=== PATIENT | female | born 1970 | race Caucasian/White ===

== ENCOUNTER → 2017-01-28 | Outpatient (CLI) | payer BC ==
[~2017-01-28] MED LIST: ATOR-26 PO; LSN/10125 PO; PSYL0.524 PO; SERT25TA PO; vitamin D PO
--- NOTE | 2017-01-28 15:49 | DIAGNOSTIC IMAGING REPORT ---
LEFT AXILLARY ULTRASOUND CLINICAL HISTORY: Left upper arm/axillary mass COMPARISON STUDY: None FINDINGS: No pathologic masses are visualized ultrasonographically. If a clinically suspicious mass is repalpated, an MRI should be considered in follow-up. IMPRESSION: Ultrasound fails to visualize the reported palpable mass. If a clinically suspicious mass is repalpated, then additional imaging such as MRI should be considered. Electronically signed by: Ronald Bernard M.D. 01/28/2017 3:47 PM Dictated Date/Time: 01/28/2017 3:46 PM
== END | disposition home or self-care (01) ==
LOC: C.ULTR 15:11
PROVIDERS: ATTEND Nurse Practitioner Family
DX: R22.30 Localized swelling, mass and lump, unspecified upper limb (principal)

== ENCOUNTER → 2017-01-30 | Outpatient (CLI) | payer BC ==
[~2017-01-30] MED LIST changes: +GADAVIST IV PRN
--- NOTE | 2017-01-30 12:49 | DIAGNOSTIC IMAGING REPORT ---
CHEST COMBO CLINICAL HISTORY: 46 years-old Female presenting with LOCALIZED SWELLING MASS AND LUMP LEFT AXILLA. TECHNIQUE: Multisequence, multiplanar MR imaging of the left chest was performed before and after the administration of intravenous contrast. IV contrast: 10 mL of Gadavist. COMPARISON: Ultrasound from 01/28/2017. FINDINGS: Localizer images: Unremarkable. A marker is noted along the medial posterior aspect of the left upper arm. No abnormalities subjacent to this region. No suspicious enhancing mass. No axillary lymphadenopathy No pulmonary nodule evident on MR. The heart may be enlarged. No focal fluid collection. Visualized osseous structures demonstrate normal bone marrow signal intensity. Normal muscle bulk. Glenohumeral joint congruent. IMPRESSION: 1. No significant abnormality subjacent to the marked region along the medial left upper arm. Electronically signed by: Freedom Leon M.D. 01/30/2017 12:48 PM Dictated Date/Time: 01/30/2017 12:41 PM
== END | disposition home or self-care (01) ==
LOC: C.MRI 10:33
PROVIDERS: ATTEND Nurse Practitioner Family
DX: R22.30 Localized swelling, mass and lump, unspecified upper limb (principal); R53.83 Other fatigue

== ENCOUNTER → 2017-05-31 | Outpatient (CLI) | payer BC ==
[~2017-05-31] MED LIST changes: -GADAVIST IV PRN
--- NOTE | 2017-05-31 15:38 | MAMMOGRAPHY REPORT ---
BILATERAL DIGITAL SCREENING MAMMOGRAM TOMOSYNTHESIS WITH CAD: 05/31/2017 CLINICAL HISTORY: Routine screening. Patient has no complaints. TECHNIQUE: Breast tomosynthesis in addition to standard 2D mammography was performed. Current study was also evaluated with a Computer Aided Detection (CAD) system. COMPARISON: Comparison is made to exams dated: 05/02/2016 mammogram, 04/14/2015 mammogram, 10/09/2013 mammogram, 08/18/2012 mammogram, 08/14/2012 mammogram, and 10/24/2010 mammogram - [facility] enter. BREAST COMPOSITION: There are scattered areas of fibroglandular density in both breasts. FINDINGS: No suspicious masses, calcifications, or areas of architectural distortion are noted in ei ther breast. There has been no significant interval change compared to prior exams. Small circumscri bed benign-appearing masses are again noted bilaterally, which likely represent cysts. IMPRESSION: ACR BI-RADS CATEGORY 2: BENIGN There is no mammographic evidence of malignancy. A 1 year screening mammogram is recommended. The pa tient will receive written notification of the results. Approximately 10% of breast cancers are not detected with mammography. A negative mammographic report should not delay biopsy if a clinically suggestive mass is present. Ivory Gu M.D. ah/:05/31/2017 15:05:03 Industrial Maintenance Mechanic: Jennifer GUZMAN)(Laurent)([place]), [facility] letter sent: Normal 1/2 BI-RADS Code: ACR BI-RADS Category 2: Benign
== END | disposition home or self-care (01) ==
LOC: C.MAMM 14:40
PROVIDERS: ATTEND Nurse Practitioner Family
DX: Z12.31 Encounter for screening mammogram for malignant neoplasm of breast (principal)

== ENCOUNTER 2017-08-23 13:57 | Emergency (ER) | payer BC ==
[~2017-08-23] VITALS: Ht 167.6 cm; Wt 108.1 kg
[2017-08-23 14:02] VITALS: TEMP 36.7; Ht 167.6 cm; Wt 108.1 kg
[2017-08-23] MEDS ORDERED: FAMOTIDINE 20MG/5ML IV PUSH IV STA (16:26)
[2017-08-23] MEDS ORDERED: SODIUM CHLORIDE 0.9% 1000ML 1,000 ML IV STA (16:26)
[2017-08-23] MEDS ORDERED: OPTIRAY 320 IV PRN (16:45)
[2017-08-23 16:59] VITALS: O2SAT 93
[2017-08-23] MEDS ORDERED: SNG10 PO (17:04)
[2017-08-23] MEDS ORDERED: ZLF/50 PO (17:04)
[2017-08-23] MEDS ORDERED: CHOL2000 PO (17:06)
[2017-08-23] MEDS ORDERED: MAGN250T8 PO (17:09)
[2017-08-23] MEDS ORDERED: FIBE1CHW8 PO (17:09)
[2017-08-23 17:12] LABS: BASO % 0.5 %; BASO ABS # 0.04 K/uL (0-0.2); EOS % 0.8 %; EOS ABS # 0.06 K/uL (0-0.5); HEMATOCRIT 41.9 % (37-47); IG# 0.03 K/uL (0.00-0.02); LYMPH % 31.2 %; LYMPH ABS # 2.48 K/uL (1.2-3.4); MEAN CELL VOLUME 91.9 fL (80-100); MEAN CORPUSCULAR HEMOGLOBIN 30.7 pg (25-34); MEAN CORPUSCULAR HGB CONC 33.4 g/dl (32-36); MEAN PLATELET VOLUME 11.3 fL (7.4-10.4); MONO % 7.5 %; NEUT % 59.6 %; NEUT ABS # 4.75 K/uL (1.4-6.5); PLATELET COUNT 213 K/uL (130-400); RED CELL DISTRIBUTION WIDTH CV 13.8 % (11.5-14.5); WHITE BLOOD COUNT 7.96 K/uL (4.8-10.8)
--- NOTE | 2017-08-23 17:12 | DIAGNOSTIC IMAGING REPORT ---
CHEST ONE VIEW PORTABLE CLINICAL HISTORY: 47 years-old Female presenting with CHEST PAIN. TECHNIQUE: Portable upright AP view of the chest was obtained. COMPARISON: 09/15/2014. FINDINGS: Cardiomediastinal silhouette normal. Lungs and pleural spaces clear. Osseous structures normal. Upper abdomen normal. IMPRESSION: 1. No acute cardiopulmonary disease. Electronically signed by: Freedom Leon M.D. 08/23/2017 5:10 PM Dictated Date/Time: 08/23/2017 5:10 PM
--- NOTE | 2017-08-23 17:27 | EMERGENCY ROOM VISIT NOTE ---
History Report prepared by Son: Shavonne Lane Under the Supervision of: Dr. Nikhil Gardner M.D. First contact with patient: 16:23 Chief Complaint: CARDIAC ASSESSMENT Stated Complaint: LEFT SIDED NUMBESS, SICK IN STOMACH Nursing Triage Summary: pt reports strange feeling in left chest, down left arm for the past several days. Comes and goes. +nausea hx of HTN. History of Present Illness The patient is a 47 year old female who presents to the Emergency Room with complaints of persistent left sided chest pain beginning three days ago. She notes she also has numbness in her left arm and left leg beginning two days ago that is waxing and waning. She notes she has been having hand and feet aches. The patient also reports she has been light headed and has left sided face numbness beginning at the same time the chest pain began. She denies a cough, neck pain, nausea, and diarrhea but notes she has bloating and burning in her abdomen. The patient reports this is her first time feeling like this. She denies any recent long flights or sitting for an extended period of time. Source of History: patient Onset: three days ago Position: chest (left) Quality: other (persistent ) Timing: waxes/wanes Associated Symptoms: + SOB, + numbness (left arm, left leg, left side of face), No cough, No neck pain, No nausea, No diarrhea Note: Positive hand and feet aches Review of Systems See HPI for pertinent positives and negatives. A total of ten systems were reviewed and were otherwise negative. Past Medical & Surgical Medical Problems: (1) Hypertension Surgical Problems: (1) History of hysterectomy (2) Hx of tonsillectomy Family History Cancer FHx: heart disease Gallbladder disease Heart disease Lung disease Seizures Social History Smoking Status: Former Smoker Housing Status: lives with family Current/Historical Medications Scheduled Atorvastatin (Lipitor), 80 MG PO HS Cholecalciferol (Vitamin D3), 2,000 INTER.UNIT PO DAILY Famotidine (Pepcid), 20 MG PO BID Fiber (Fiber Adult Gummies 2 gm), 1 TAB PO BID Hctz/Lisinopril (Lisinopril/Hctz 10/12.5 Mg), 1 TAB PO QAM Magnesium Oxide (Mg Supplement (Magnesium), 1 TAB PO DAILY Montelukast Sod (Montelukast Sodium), 10 MG PO DAILY Sertraline HCl (Sertraline HCl), 75 MG PO HS Allergies Coded Allergies: NSAIDs (Verified Allergy, Unknown, STOMACH ULCER, 05/11/16) Penicillins (Verified Allergy, Unknown, FACIAL SWELLING, 05/11/16) Simvastatin (Verified Allergy, Unknown, muscle pain, 05/11/16) Physical Exam Vital Signs Date Time Temp Pulse Resp B/P (MAP) Pulse Ox O2 Delivery O2 Flow Rate FiO2 08/23/17 19:12 66 139/84 99 08/23/17 18:09 52 18 138/89 100 Room Air 08/23/17 16:59 93 Room Air 08/23/17 16:57 58 08/23/17 14:05 98 Room Air 08/23/17 14:02 36.7 59 18 159/107 97 Room Air Physical Exam GENERAL: Awake, alert, anxious-appearing, in no distress HENT: Normocephalic, atraumatic. Oropharynx unremarkable. Dry mucous membranes. EYES: Normal conjunctiva. Sclera non-icteric. NECK: Supple. No nuchal rigidity. FROM. No JVD. RESPIRATORY: Clear to auscultation. CARDIAC: Regular rate, normal rhythm. Extremities warm and well perfused. Pulses equal. ABDOMEN: Soft, non-distended. Mild epigastric discomfort, no discrete tenderness , no peritoneal signs No rebound or guarding. No masses. RECTAL: Deferred. MUSCULOSKELETAL: Chest examination reveals no tenderness. The back is symmetrical on inspection without obvious abnormality. There is no CVA tenderness to palpation. No joint edema. LOWER EXTREMITIES: Calves are equal size bilaterally and non-tender. No edema. No discoloration. NEURO: Normal sensorium. No sensory or motor deficits noted. Normal cerebellar function with [id number], alternating palms, [id number] SKIN: No rash or jaundice noted. Medical Decision & Procedures ER Provider Diagnostic Interpretation: Radiology results as stated below per my review and radiologist interpretation: HEAD WITHOUT CONTRAST (CT) CT DOSE: 1062.25 mGy.cm HISTORY: Pain. Neuropathy. left sided numbness TECHNIQUE: Multiaxial CT images of the head were performed without the use of intravenous contrast. A dose lowering technique was utilized adhering to the principles of ALARA. Comparison: None. Findings: The paranasal sinuses and mastoid air cells are clear. The calvarium and skull base are intact. The ventricles and sulci are within normal limits. There is no mass, hematoma, midline shift, or acute infarct. Impression: No acute intracranial abnormality. The above report was generated using voice recognition software. It may contain grammatical, syntax or spelling errors. Electronically signed by: Tristian Figueroa M.D. 08/23/2017 6:33 PM Dictated Date/Time: 08/23/2017 6:31 PM CHEST ONE VIEW PORTABLE CLINICAL HISTORY: 47 years-old Female presenting with CHEST PAIN. TECHNIQUE: Portable upright AP view of the chest was obtained. COMPARISON: 09/15/2014. FINDINGS: Cardiomediastinal silhouette normal. Lungs and pleural spaces clear. Osseous structures normal. Upper abdomen normal. IMPRESSION: 1. No acute cardiopulmonary disease. Electronically signed by: Freedom Leon M.D. 08/23/2017 5:10 PM Dictated Date/Time: 08/23/2017 5:10 PM HEAD ANGIO WITH CONTRAST, NECK ANGIO WITH CONTRAST CLINICAL HISTORY: 47 years-old Female presenting with left-sided numbness. TECHNIQUE: Multidetector CT angiography of the head and neck was performed after the administration of intravenous contrast. 3-D volumetric and/or maximum intensity projection (MIP) images were subsequently reconstructed for review. IV contrast: 93 mL of Optiray 320. A dose lowering technique was used consistent with the principles of ALARA (as low as reasonably achievable). Stenosis measurements were based on NASCET-like criteria. COMPARISON: None. CT DOSE (mGy.cm): The estimated cumulative dose is 1062.25 inclusive of the noncontrast CT head. FINDINGS: Chemical Process Equipment Operator topogram: Unremarkable. CTA HEAD: Intracranial portions of the internal carotid arteries are patent. Bilateral anterior and middle cerebral arteries patent. Anterior communicating artery not well visualized, possibly hypoplastic or aplastic. Posterior circulation demonstrates left dominant vertebral artery both contribute to the patent basilar artery. Bilateral posterior inferior cerebellar, superior cerebellar, and posterior cerebral arteries patent. Posterior communicating arteries hypoplastic or aplastic. Evaluation slightly degraded by timing of the contrast with opacification of the cortical and deep cerebral veins. No evidence of focal vessel occlusion, stenosis, or aneurysm of the intracranial arteries. Layering fluid in the bilateral maxillary sinuses. CTA NECK: Three-vessel aortic arch with patent origins of the cervical vessels. Bilateral common carotid arteries patent. Trace atherosclerosis noted at the right carotid bulb. Internal carotid arteries patent at their origins and along their courses bilaterally. Vertebral arteries patent at their origins and along the courses. Left dominant vertebral artery. No evidence of dissection, focal vessel occlusion, or significant stenosis of the cervical arteries. Soft tissues of the neck remarkable for multiple thyroid nodules, the largest measuring 8 mm. No lymphadenopathy. Lung apices clear. Minimal degenerative change of the cervical spine. IMPRESSION: 1. No evidence of focal vessel occlusion, stenosis, or aneurysm of the intracranial arteries. 2. No evidence of dissection, focal vessel occlusion, or significant stenosis of the cervical arteries. 3. Layering fluid in the bilateral maxillary sinuses, which is suggestive of acute sinusitis. Electronically signed by: Freedom Leon M.D. 08/23/2017 6:41 PM Dictated Date/Time: 08/23/2017 6:32 PM HEAD ANGIO WITH CONTRAST, NECK ANGIO WITH CONTRAST CLINICAL HISTORY: 47 years-old Female presenting with left-sided numbness. TECHNIQUE: Multidetector CT angiography of the head and neck was performed after the administration of intravenous contrast. 3-D volumetric and/or maximum intensity projection (MIP) images were subsequently reconstructed for review. IV contrast: 93 mL of Optiray 320. A dose lowering technique was used consistent with the principles of ALARA (as low as reasonably achievable). Stenosis measurements were based on NASCET-like criteria. COMPARISON: None. CT DOSE (mGy.cm): The estimated cumulative dose is 1062.25 inclusive of the noncontrast CT head. FINDINGS: Chemical Process Equipment Operator topogram: Unremarkable. CTA HEAD: Intracranial portions of the internal carotid arteries are patent. Bilateral anterior and middle cerebral arteries patent. Anterior communicating artery not well visualized, possibly hypoplastic or aplastic. Posterior circulation demonstrates left dominant vertebral artery both contribute to the patent basilar artery. Bilateral posterior inferior cerebellar, superior cerebellar, and posterior cerebral arteries patent. Posterior communicating arteries hypoplastic or aplastic. Evaluation slightly degraded by timing of the contrast with opacification of the cortical and deep cerebral veins. No evidence of focal vessel occlusion, stenosis, or aneurysm of the intracranial arteries. Layering fluid in the bilateral maxillary sinuses. CTA NECK: Three-vessel aortic arch with patent origins of the cervical vessels. Bilateral common carotid arteries patent. Trace atherosclerosis noted at the right carotid bulb. Internal carotid arteries patent at their origins and along their courses bilaterally. Vertebral arteries patent at their origins and along the courses. Left dominant vertebral artery. No evidence of dissection, focal vessel occlusion, or significant stenosis of the cervical arteries. Soft tissues of the neck remarkable for multiple thyroid nodules, the largest measuring 8 mm. No lymphadenopathy. Lung apices clear. Minimal degenerative change of the cervical spine. IMPRESSION: 1. No evidence of focal vessel occlusion, stenosis, or aneurysm of the intracranial arteries. 2. No evidence of dissection, focal vessel occlusion, or significant stenosis of the cervical arteries. 3. Layering fluid in the bilateral maxillary sinuses, which is suggestive of acute sinusitis. Electronically signed by: Freedom Leon M.D. 08/23/2017 6:41 PM Dictated Date/Time: 08/23/2017 6:32 PM Laboratory Results 08/23/17 16:52 Red Blood Count 4.56, Mean Corpuscular Volume 91.9, Mean Corpuscular Hemoglobin 30.7, Mean Corpuscular Hemoglobin Concent 33.4, Mean Platelet Volume 11.3, Neutrophils (%) (Auto) 59.6, Lymphocytes (%) (Auto) 31.2, Monocytes (%) (Auto) 7.5, Eosinophils (%) (Auto) 0.8, Basophils (%) (Auto) 0.5, Neutrophils # (Auto) 4.75, Lymphocytes # (Auto) 2.48, Monocytes # (Auto) 0.60, Eosinophils # (Auto) 0.06, Basophils # (Auto) 0.04 08/23/17 16:52 Test 08/23/17 16:24 08/23/17 16:52 Urine Color YELLOW Urine Appearance CLEAR (CLEAR) Urine pH 5.0 (4.5-7.5) Urine Specific [place] 1.017 (1.000-1.030) Urine Protein NEG (NEG) Urine Glucose (UA) NEG (NEG) Urine Ketones NEG (NEG) Urine Occult Blood 1+ (NEG) Urine Nitrite NEG (NEG) Urine Bilirubin NEG (NEG) Urine Urobilinogen NEG (NEG) Urine Leukocyte Esterase NEG (NEG) Urine WBC (Auto) 1-5 /hpf (0-5) Urine RBC (Auto) 0-4 /hpf (0-4) Urine Hyaline Casts (Auto) 1-5 /lpf (0-5) Urine Epithelial Cells (Auto) 10-20 /lpf (0-5) Urine Bacteria (Auto) NEG (NEG) White Blood Count 7.96 K/uL (4.8-10.8) Red Blood Count 4.56 M/uL (4.2-5.4) Hemoglobin 14.0 g/dL (12.0-16.0) Hematocrit 41.9 % (37-47) Mean Corpuscular Volume 91.9 fL (80-100) Mean Corpuscular Hemoglobin 30.7 pg (25-34) Mean Corpuscular Hemoglobin Concent 33.4 g/dl (32-36) Platelet Count 213 K/uL (130-400) Mean Platelet Volume 11.3 fL (7.4-10.4) Neutrophils (%) (Auto) 59.6 % Lymphocytes (%) (Auto) 31.2 % Monocytes (%) (Auto) 7.5 % Eosinophils (%) (Auto) 0.8 % Basophils (%) (Auto) 0.5 % Neutrophils # (Auto) 4.75 K/uL (1.4-6.5) Lymphocytes # (Auto) 2.48 K/uL (1.2-3.4) Monocytes # (Auto) 0.60 K/uL (0.11-0.59) Eosinophils # (Auto) 0.06 K/uL (0-0.5) Basophils # (Auto) 0.04 K/uL (0-0.2) RDW Standard Deviation 46.0 fL (36.4-46.3) RDW Coefficient of Variation 13.8 % (11.5-14.5) Immature Granulocyte % (Auto) 0.4 % Immature Granulocyte # (Auto) 0.03 K/uL (0.00-0.02) Anion Gap 9.0 mmol/L (3-11) Est Creatinine Clear Calc Drug Dose 115.7 ml/min Estimated GFR () 111.0 Estimated GFR (Non- 95.8 BUN/Creatinine Ratio 23.4 (10-20) Calcium Level 9.8 mg/dl (8.5-10.1) Total Bilirubin 0.5 mg/dl (0.2-1) Direct Bilirubin 0.1 mg/dl (0-0.2) Aspartate Amino Transf (AST/SGOT) 27 U/L (15-37) Alanine Aminotransferase (ALT/SGPT) 47 U/L (12-78) Alkaline Phosphatase 116 U/L (45-117) Troponin I < 0.015 ng/ml (0-0.045) Total Protein 7.6 gm/dl (6.4-8.2) Albumin 4.1 gm/dl (3.4-5.0) Lipase 166 U/L (73-393) Monoscreen NEG (NEG) Influenza Type A Antigen Neg for Influ A (NEG) Influenza Type B Antigen Neg for Influ B (NEG) Laboratory results reviewed by me Medications Administered Medications (Trade) Dose Ordered Sig/Delroy Route Start Time Stop Time Status Last Admin Dose Admin Sodium Chloride 1,000 ml @ 999 mls/hr Q1H1M STAT IV 08/23/17 16:26 08/23/17 17:26 DC 08/23/17 17:06 999 MLS/HR Famotidine (Pepcid 20mg Iv Push) 20 mg NOW STAT IV 08/23/17 16:26 08/23/17 16:36 DC 08/23/17 17:06 20 MG ECG Indication: chest pain Rate (beats per minute): 58 Rhythm: sinus bradycardia Findings: no acute ischemic change, other (normal axis) Change: Patient's electrocardiogram interpreted by me. ED Course 1625: The patient was evaluated in room A11. A complete history and physical exam was performed. 5: I reevaluated the patient. Discussed results and discharge instructions: She verbalized understanding and agreement. The patient is ready for discharge. I checked on the patient at this time. She feels a little better and wants to go home. Medical Decision I reviewed the patient's past medical history, medications, and the nursing notes as described above. Differential diagnosis: Etiologies such as cardiac ischemia, aortic dissection, pulmonary embolism, pneumonia, pneumothorax, musculoskeletal, infections, pericarditis, myocarditis , esophageal rupture, gastrointestinal, neurologic as well as others were entertained. The patient is a 47 y/o woman who presents to the emergency department with multiple complaints including CP, SOB, lightheadedness, left arm, leg, and face numbness with leg numbness resolving, epigastric pain and nausea per HPI. On arrival the patient is anxious appearing but in NAD, AFVSS. On exam has mild epigastric discomfort but no discrete ttp. Neuro intact including normal cerebellar function with [id number], alternating palms, zfuc-[id number]. EKG unremarkable. Troponin negative in the setting of constant sx. CTA head/neck unremarkable. Patient feeling improved after GI cocktail suggesting possible reflux/gastritis (in the setting of CT findings c/w sinuitis) component to patient's sx, however difficulty to unify all of the patients complaints under a single diagnosis. However, given reassuring w/u and exam unlikely to have emergent process at this time. Findings and plan for follow-up reviewed with patient. Patient agreeable and d/c'd per discharge instructions. Medication Reconcilliation Current Medication List: was personally reviewed by me Blood Pressure Screening Patient's blood pressure: Elevated blood pressure Blood pressure disposition: Elevated BP felt to be situational Impression Primary Impression: Substernal chest pain Additional Impression: Gastritis Scribe Attestation The scribe's documentation has been prepared under my direction and personally reviewed by me in its entirety. I confirm that the note above accurately reflects all work, treatment, procedures, and medical decision making performed by me. Departure Information Dispostion Home / Self-Care Prescriptions Famotidine (PEPCID) 20 Mg Tab 20 MG PO BID for 14 Days, #28 TAB Prov: Nikhil Gardner M.D. 08/23/17 Referrals No Doctor, Assigned (PCP) Forms IMPORTANT VISIT INFORMATION Patient Instructions ED Chest Pain Atypical Unkn Cause, ED Gastritis, My [facility] Additional Instructions Please follow up with your primary care physician in the next 1-3 days for re- evaluation. The exact cause of your symptoms unclear at this time but may be related to reflux or a gastritis. Additionally your CAT scan suggest some evidence of sinusitis. Otherwise, your exam, EKG, chest xray, CT scan with contrast of your head and neck, and lab results did not show signs of an emergent condition at this time. Acetaminophen for pain and fevers as needed. Pepcid for acid reduction. Mucinex and nasal saline spray to help loosen mucus. Drink plenty of fluids to ensure hydration. Return to the emergency department for worsening symptoms as described in the accompanying instructions. Problem Qualifiers
[2017-08-23 17:30] LABS: ALBUMIN 4.1 gm/dl (3.4-5.0); ALT/SGPT 47 U/L (12-78); AST/SGOT 27 U/L (15-37); BLOOD UREA NITROGEN 17 mg/dl (7-18); CALCIUM 9.8 mg/dl (8.5-10.1); CARBON DIOXIDE 25 mmol/L (21-32); CREATININE 0.74 mg/dl (0.60-1.20); GLUCOSE 88 mg/dl (70-99); LIPASE 166 U/L (73-393); POTASSIUM 3.6 mmol/L (3.5-5.1); SODIUM 136 mmol/L (136-145)
[2017-08-23 17:35] LABS: ALKALINE PHOSPHATASE 116 U/L (45-117); TOTAL PROTEIN 7.6 gm/dl (6.4-8.2)
[2017-08-23 17:54] LABS: INFLUENZA B ANTIGEN Neg for Influ B (NEG)
--- NOTE | 2017-08-23 18:34 | DIAGNOSTIC IMAGING REPORT ---
HEAD WITHOUT CONTRAST (CT) CT DOSE: 1062.25 mGy.cm HISTORY: Pain. Neuropathy. left sided numbness TECHNIQUE: Multiaxial CT images of the head were performed without the use of intravenous contrast. A dose lowering technique was utilized adhering to the principles of ALARA. Comparison: None. Findings: The paranasal sinuses and mastoid air cells are clear. The calvarium and skull base are intact. The ventricles and sulci are within normal limits. There is no mass, hematoma, midline shift, or acute infarct. Impression: No acute intracranial abnormality. The above report was generated using voice recognition software. It may contain grammatical, syntax or spelling errors. Electronically signed by: Tristian Figueroa M.D. 08/23/2017 6:33 PM Dictated Date/Time: 08/23/2017 6:31 PM
--- NOTE | 2017-08-23 18:42 | DIAGNOSTIC IMAGING REPORT ---
HEAD ANGIO WITH CONTRAST, NECK ANGIO WITH CONTRAST CLINICAL HISTORY: 47 years-old Female presenting with left-sided numbness. TECHNIQUE: Multidetector CT angiography of the head and neck was performed after the administration of intravenous contrast. 3-D volumetric and/or maximum intensity projection (MIP) images were subsequently reconstructed for review. IV contrast: 93 mL of Optiray 320. A dose lowering technique was used consistent with the principles of ALARA (as low as reasonably achievable). Stenosis measurements were based on NASCET-like criteria. COMPARISON: None. CT DOSE (mGy.cm): The estimated cumulative dose is 1062.25 inclusive of the noncontrast CT head. FINDINGS: Multiple Spindle Router Operator topogram: Unremarkable. CTA HEAD: Intracranial portions of the internal carotid arteries are patent. Bilateral anterior and middle cerebral arteries patent. Anterior communicating artery not well visualized, possibly hypoplastic or aplastic. Posterior circulation demonstrates left dominant vertebral artery both contribute to the patent basilar artery. Bilateral posterior inferior cerebellar, superior cerebellar, and posterior cerebral arteries patent. Posterior communicating arteries hypoplastic or aplastic. Evaluation slightly degraded by timing of the contrast with opacification of the cortical and deep cerebral veins. No evidence of focal vessel occlusion, stenosis, or aneurysm of the intracranial arteries. Layering fluid in the bilateral maxillary sinuses. CTA NECK: Three-vessel aortic arch with patent origins of the cervical vessels. Bilateral common carotid arteries patent. Trace atherosclerosis noted at the right carotid bulb. Internal carotid arteries patent at their origins and along their courses bilaterally. Vertebral arteries patent at their origins and along the courses. Left dominant vertebral artery. No evidence of dissection, focal vessel occlusion, or significant stenosis of the cervical arteries. Soft tissues of the neck remarkable for multiple thyroid nodules, the largest measuring 8 mm. No lymphadenopathy. Lung apices clear. Minimal degenerative change of the cervical spine. IMPRESSION: 1. No evidence of focal vessel occlusion, stenosis, or aneurysm of the intracranial arteries. 2. No evidence of dissection, focal vessel occlusion, or significant stenosis of the cervical arteries. 3. Layering fluid in the bilateral maxillary sinuses, which is suggestive of acute sinusitis. Electronically signed by: Freedom Leon M.D. 08/23/2017 6:41 PM Dictated Date/Time: 08/23/2017 6:32 PM
[2017-08-23] MEDS ORDERED: FAMO20TA9 PO (19:03)
[2017-08-23 19:12] VITALS: BP 139/84; PULSE 66; O2SAT 99
== END 2017-08-23 19:11 | disposition home or self-care (01) ==
LOC: C.EDB 13:59 → C.EDA 19:11
DX: R07.2 Precordial pain (principal); R20.0 Anesthesia of skin; R42 Dizziness and giddiness; R14.0 Abdominal distension (gaseous); R10.9 Unspecified abdominal pain; I10 Essential (primary) hypertension; Z87.891 Personal history of nicotine dependence; Z88.0 Allergy status to penicillin; Z88.6 Allergy status to analgesic agent; Z88.8 Allergy status to other drugs, medicaments and biological substances; Z82.49 Family history of ischemic heart disease and other diseases of the circulatory system; Z83.6 Family history of other diseases of the respiratory system; Z82.0 Family history of epilepsy and other diseases of the nervous system

== ENCOUNTER → 2017-09-30 | Outpatient (CLI) | payer BC ==
[~2017-09-30] MED LIST changes: +CHOL2000 PO; +FIBE1CHW8 PO; +MAGN250T8 PO; -PSYL0.524 PO; -SERT25TA PO; +SINCALIDE INJ 2.2 MCG in SODIUM CHLORIDE 0.9% 100ML 100 ML IV SCH; +SNG10 PO; +ZLF/50 PO; -vitamin D PO
--- NOTE | 2017-09-30 12:54 | DIAGNOSTIC IMAGING REPORT ---
HEPATOBILIARY EF IMAGING HISTORY: Pain. Nausea. ABDOMINAL DISTENSION,UNSPECIFIC ABDOMINAL PAIN COMPARISON: None. TECHNIQUE: Immediately following the intravenous administration of 5.5 mCi Tc-99m Choletec, dynamic anterior abdominal imaging pre/post 2.2 mcg of Kinevac was performed. FINDINGS: Uniform hepatic tracer accumulation is shown. Prompt intrahepatic biliary excretion is seen. The gallbladder, common bile duct, and small bowel are all visualized by 25 minutes. This appearance represents the normal sequence of biliary excretion. The gallbladder ejection fraction following administration of Kinevac was 58 % (normal >35%). IMPRESSION: 1. No evidence for cystic duct obstruction. 2. Gallbladder ejection fraction calculated to be 58 %. The above report was generated using voice recognition software. It may contain grammatical, syntax or spelling errors. Electronically signed by: Tristian Figueroa M.D. 09/30/2017 12:52 PM Dictated Date/Time: 09/30/2017 12:52 PM
== END | disposition home or self-care (01) ==
LOC: C.NUCL 10:15
PROVIDERS: ATTEND Internal Medicine Gastroenterology
DX: R10.9 Unspecified abdominal pain (principal)

== ENCOUNTER → 2018-02-20 | Day surgery (SDC) | payer BC ==
[2018-02-11 11:03] VITALS: Ht 167.6 cm; Wt 109.1 kg
[~2018-02-20] VITALS: Ht 167.6 cm; Wt 109.1 kg
[~2018-02-20] MED LIST changes: +ALBU18002 INH; +ATROPINE SULFATE 0.1 MG/ML 5ML SYR IV PRN; +BUPIVACAINE 0.5 % 5 MG/1 ML PF 10ML VIAL ONE; +CHOL1000 PO; -CHOL2000 PO; +CLINDAMYCIN 900MG IV SCH; +CLINDAMYCIN IV 900 MG in DEXTROSE 5% 50ML IV SCH; +FENTANYL CITRATE INJ 50 MCG/1 ML 2 ML VIAL IV PRN; +FENTANYL CITRATE INJ 50 MCG/1 ML 2 ML VIAL ONE; +HYDR-5688 PO; +LACTATED RINGER'S 1000ML 1,000 ML IV SCH; +LIDOCAINE HCL 2% 2 ML VIAL (20MG/ML) ONE; +LIDOCAINE/EPINEPHRINE 1% 20 ML VIAL ONE; +MAGN1CAP2 PO; -MAGN250T8 PO; +MIDAZOLAM HCL 1 MG/ML 2ML VIAL ONE; +MOME6000 NAE; +ONDANSETRON INJ 2 MG/ML 2 ML VIAL IV PRN; +OXYCODONE/ACETAMINOPHEN 5-325 TAB PO PRN; +PROPOFOL IV EMULSION 10 MG/ML 20 ML VIAL ONE; -SINCALIDE INJ 2.2 MCG in SODIUM CHLORIDE 0.9% 100ML 100 ML IV SCH; +SODIUM CHLORIDE 0.9% 1000ML 1,000 ML IV SCH
--- NOTE | 2018-02-20 13:19 | History & Physical Bridge Note ---
H&P Re-Evaluation Bridge Note: I have examined the patient, reviewed the History & Physical and in the interval since the performance of the History & Physical I have noted the following changes of clinical significance: No changes noted
--- NOTE | 2018-02-20 13:48 | [facility] Post Operative Brief Note ---
Immediate Operative Summary Operative Date Feb 20, 2018. Pre-Operative Diagnosis Right Carpal Tunnel Syndrome Post-Operative Diagnosis same as preop Procedure(s) Performed Right Carpal Tunnel Release Surgeon Dr. Holley Paper Carrier Surgeon(s) AVA Kevin Estimated Blood Loss 0ml Findings Consistent with Post-Op Diagnosis Specimens none Drains None Anesthesia Type MAC Complication(s) none Disposition Accompanied Pt To Recover: no Disposition: Recovery Room / PACU
--- NOTE | 2018-02-20 13:59 | Discharge Instructions-SurgCtr ---
Discharge Instructions Date of Service Feb 20, 2018. Visit Reason for Visit: Right Carpal Tunnel Syndrome Discharge Discharge Diagnosis / Problem: Right carpal tunnel syndrome Discharge Goals Goal(s): Decrease discomfort, Improve function, Increase independence Activity Recommendations Activity Limitations: per Instructions/Follow-up section Weightbearing Status: Right non-weightbearing (right hand) Anesthesia . Post Anesthesia Instructions: If you have had General Anesthesia or IV Sedation: * Do not drive today. * Resume driving when surgeon permits. * Do not make important decisions or sign legal documents today. * Call surgeon for: 1. Temperature elevations greater than 101 degrees F. 2. Uncontrollable pain. 3. Excessive bleeding. 4. Persistent nausea and vomiting. 5. Medication intolerance (nausea, vomiting or rash). * For nausea and vomiting use only clear liquids such as: tea, soda, bouillon until nausea subsides, then gradually increase diet as tolerated. * If you have any concerns or questions, call your surgeon's office. If physician is unavailable and it is an emergency, call 911 or go to the nearest emergency room. . Instructions / Follow-Up Instructions / Follow-Up The following are instructions to follow after minor hand surgery. ACTIVITY RECOMMENDATIONS: * Minimize activity until your first visit after surgery. * No excessive walking, jogging, sports or laboring. * Return to activity is individualized. Most patients are able to return to everyday activities within 2 weeks. * Return to sports or intensive labor usually occurs at 1-2 months. * DRIVING: Driving may be resumed when you feel you have adequate pain control and use of the hand. * BATHING: You may shower or sponge-bathe immediately after surgery. The dressing will need to be covered with a plastic bag or plastic wrap until the dressing is changed on the fourth or fifth day after surgery. Once the dressing has been changed on the fourth or fifth day after surgery, you may shower and get the incision wet. * Wash with regular soap and water. * Do not bathe (submerge the incision), soak, swim or use a hot tub until the incision is completely healed over with normal skin and the doctor has given the OK to proceed. * There is no need to apply any ointments, powders or salves to your incision. * Do not apply alcohol or hydrogen peroxide directly to the incision. Diluted peroxide (50:50 mixture with sterile saline) may be used to clean dried blood from around the incision area. WORK/SCHOOL: * You may return to sedentary work or school when you are feeling comfortable. This is usually 3-7 days after surgery. * Expect increased discomfort with increased activity. Continue to elevate and ice the hand as much as possible. DIET: * Resume previous diet. MEDICATIONS: * You will have a prescription for pain medication and an anti-inflammatory medication after surgery. Use the pain pills for severe pain and the anti-inflammatory for less severe pain. * Once the pain pills have run out, try to use the anti-inflammatory. If this is not effective then contact the office for assistance. * The pain medication may cause nausea, constipation and sleepiness. You should see how they affect you before driving or similar activity. * The anti-inflammatory may cause stomach upset and bleeding. If this occurs, let your doctor know immediately . * Some patients may need blood clot prevention. This can be done with either a pill or a simple shot. Your doctor will advise you on when to begin these medications and how to take them. * Do not take aspirin or other anti-inflammatory products (i.e. Advil or Aleve ) if taking blood thinner medication. * Take a stool softener like Colace or a stimulant like Senokot to prevent constipation. SPECIAL CARE INSTRUCTIONS: ICE: * Do not apply ice directly to the skin. * Use a thin dressing or stockinet between the skin and ice bag. The dressing in place after surgery will suffice. * Apply ice for 20-30 minutes and repeat every 2-4 hours. This is especially important for the first 3-7 days after surgery. * Once the pain improves, use ice as needed. ELEVATION: * Keep your hand elevated at or above the level of your heart as much as possible. * Expect some increased discomfort and swelling if you allow your hand to hang down for any length of time. DRESSING: * Your dressing will be changed 4-5 days after surgery by the physical therapist or physician's child care center assistant director. Leave your dressing intact until this time. * You may then change your dressing daily with clean dry gauze or Band-aids and a soft wrap or stockinet. * Always wash your hands prior to touching the incision area. * Once the stitches are removed, you may leave the wound open to air or cover with a thin bandage. * There is no need to apply any ointments, powders or salves to your incision. * Expect some bloody drainage for the first few days after surgery. * Leave the tape strips in place (if present) for 5-7 days. * The initial dressing after surgery may become soaked with blood or fluid which is normal. You may reinforce your dressing with clean, dry gauze as needed. BRACE: * Bracing is generally not needed after routine hand surgery. THERAPY: * Physical therapy may be prescribed after your surgery. * For carpal tunnel and trigger digit surgery you may begin moving your fingers and wrist immediately after surgery as tolerated. * Be careful to not overuse. * Once the sutures are removed, further range of motion exercises can be performed. * Hand incisions may be very sensitive for a few months after surgery so avoid excessive pressure on the incision. If necessary, use a padded weightlifters' glove. * You may massage the incision with skin cream to make it less sensitive and reduce scarring. * Hand strength usually returns with normal use. * If needed, squeezing a soft sponge or Play-dough may help. * Your doctor will recommend physical therapy if necessary. PROBLEMS/QUESTIONS: * If you have any problems such as severe pain, numbness, tingling or high fevers or if you have any questions, please contact the office at [phone]. * It is not uncommon to have some numbness and tingling after the surgery especially if you have had a nerve block done. This should gradually improve over the first 1- 2 days. If this persists longer or worsens then contact the office. FOLLOW UP VISIT: * If not already scheduled, please call the office at to schedule follow-up appointments for approximately 10 days, 6 weeks and 3 months after surgery. * You have a physical therapy appointment on 02/24/18 at 9:00 a.m. * You have a follow up appointment with Dr. Holley on 03/04/18 at 10:15 a.m. Diet Recommendations Home Diet: no limitations, resume previous diet Procedures Procedures Performed: Right Carpal Tunnel Release Pending Studies Studies pending at discharge: no Medical Emergencies . Who to Call and When: Medical Emergencies: If at any time you feel your situation is an emergency, please call 911 immediately. . Non-Emergent Contact Non-Emergency issues call your: Surgeon Call Non-Emergent contact if: temperature is above 101, your pain is not controlled, your pain is worsening, your pain is unusual for you, your pain is concerning you, wound has increased drainage, wound has increased redness, wound has increased pain, you have any medication questions . . "Provider Documentation" section prepared by Natividad Carrera. . [place] Drug Monitoring Program Search Results: patient reviewed within database, no issues identified
[2018-02-20 14:12] VITALS: BP 113/75; PULSE 64; TEMP 36.2; O2SAT 97
--- NOTE | 2018-02-20 14:17 | Anesthesia Progress Nt - [facility] ---
Anesthesia Post Op Note Date & Time Feb 20, 2018 at 14:17 Vital Signs Pain Intensity: 0 Vital Signs Past 12 Hours Date Time Temp Pulse Resp B/P (MAP) Pulse Ox O2 Delivery O2 Flow Rate FiO2 02/20/18 14:12 36.2 64 16 113/75 (88) 97 Room Air 02/20/18 11:57 36.8 52 16 142/89 (106) 97 Room Air Notes Mental Status: alert / awake / arousable, participated in evaluation Pt Amnestic to Procedure: Yes Nausea / Vomiting: adequately controlled Pain: adequately controlled Airway Patency, RR, SpO2: stable & adequate BP & HR: stable & adequate Hydration State: stable & adequate Anesthetic Complications: no major complications apparent
--- NOTE | 2018-02-20 14:30 | [facility] Operative Report ---
Operative Report Operative Date Feb 20, 2018. Pre-Operative Diagnosis Right Carpal Tunnel Syndrome Post-Operative Diagnosis same as preop Procedure(s) Performed Right Carpal Tunnel Release Surgeon Dr. Holley Maintenance Dispatcher Surgeon(s) AVA Kevin Estimated Blood Loss 0ml Specimens none Drains None Anesthesia Type MAC Complication(s) none Disposition no Recovery Room / PACU Indications Patient is a 48-year-old female with complaints of paresthesias of her right hand. X-rays were taken and were normal. EMG of her right hand found to have moderate to severe carpal tunnel syndrome. She is failed conservative treatment. Surgical intervention recommended. She wished to proceed with surgery. Risks and complications of surgery were discussed and informed consent was obtained. Description of Procedure Patient was taken to the operating room and placed under IV sedation. She was given a local anesthetic. Timeout was performed. She is given 900 mg of IV clindamycin preoperatively. She was prepped and draped in routine sterile fashion. I was present during the entire case, please see Dr. Holley's operative report for further detail. Patient was awakened and transferred to the recovery room in stable condition. I attest to the content of the Intraoperative Record and any orders documented therein. Any exceptions are noted below.
--- NOTE | 2018-02-20 16:36 | [facility] Operative Report ---
Operative Report Operative Date Feb 20, 2018. Pre-Operative Diagnosis Right Carpal Tunnel Syndrome Post-Operative Diagnosis same as preop Procedure(s) Performed Right Carpal Tunnel Release Surgeon Dr. Holley Track Laying Equipment Operator Surgeon(s) AVA Kevin Estimated Blood Loss 0ml Findings None Specimens none Anesthesia Local with IV sedation Complication(s) None Disposition Recovery Room / PACU Indications Patient's 48-year-old female with signs and symptoms of carpal tunnel syndrome refractory to nonsurgical methods of management. Description of Procedure Informed consent was obtained. The patient was identified. The patient identified the operative site as the right wrist which I marked with my initials. A preoperative surgical timeout was performed. A preop dose of IV antibiotics was given. The patient was positioned supine on the hospital stretcher with the right arm suspended on a hand table. A tourniquet was applied to the arm. The limb was prepped and draped in the usual sterile fashion. The examination under anesthesia was unremarkable. 1% lidocaine with epinephrine and 0.5% plain Marcaine was injected preoperatively for a carpal tunnel block. DVT prophylaxis was not indicated. The limb was exsanguinated with the Esmarch and the tourniquet was inflated to 225 mmHg. A midline longitudinal incision was made beginning at Woodard's cardinal line. The incision stopped just short of the distal transverse wrist crease. Blunt dissection was performed down through the subcutaneous tissues and through the superficial palmar fascia. The transverse carpal ligament was identified and divided in line with the incision up into distal forearm fascia under direct visualization. A wide decompression was obtained. The contents of the carpal canal tendons median nerve and tenosynovium appeared to be normal. The wound was copiously irrigated with sterile saline and then closed with 4-0 nylon horizontal mattress stitches. A soft sterile dressing was applied. Palmaris brevis muscle was noted. The tourniquet was let down after 15 of inflation. The patient was awakened from anesthesia without difficulty and taken to the recovery room in stable condition. There were no specimens or complications. Counts were correct at the end of the case. Blood loss was minimal. At the conclusion of the operation spoke to the patient's family and informed them of my findings. Detailed postoperative instructions were given. The patient will be rehabilitated according to the carpal tunnel protocol. I attest to the content of the Intraoperative Record and any orders documented therein. Any exceptions are noted below.
== END | disposition home or self-care (01) ==
LOC: X.SURG 11:25
PROVIDERS: ATTEND Physical Medicine & Rehabilitation Sports Medicine
DX: G56.01 Carpal tunnel syndrome, right upper limb (principal); I10 Essential (primary) hypertension; Z88.0 Allergy status to penicillin; E66.9 Obesity, unspecified; Z79.899 Other long term (current) drug therapy; Z88.1 Allergy status to other antibiotic agents; Z68.38 Body mass index [BMI] 38.0-38.9, adult